=== PATIENT | male | born 1990 | race African-American/Black ===

== ENCOUNTER → 2018-02-14 14:26 | Outpatient (CLI) | payer OTHER ==
[~2018-02-14 14:26] MED LIST: MAXITROL EYE O3.5 GM OP; OMEPRAZOLE20 M1; OMEPRAZOLE20 M1 PO; ZYRTEC10 MG PO
== END | disposition home or self-care (01) ==
LOC: LAB 14:26
DX: K76.89 Other specified diseases of liver (principal); D64.89 Other specified anemias; E07.89 Other specified disorders of thyroid

== ENCOUNTER 2019-01-29 14:11 | Outpatient (CLI) | payer OTHER | END 2019-01-29 14:13 | disposition home or self-care (01) | LOC: RAD 14:11 | DX: M54.5 Low back pain (principal) ==

== ENCOUNTER 2021-01-28 11:13 | Emergency (ER) | payer OTHER ==
[~2021-01-28] VITALS: Ht 172.7 cm; Wt 70.8 kg
== END 2021-01-28 14:56 | disposition home or self-care (01) ==
LOC: ER 11:13
DX: B34.9 Viral infection, unspecified (principal); J11.1 Influenza due to unidentified influenza virus with other respiratory manifestations; Z03.818 Encounter for observation for suspected exposure to other biological agents ruled out

== ENCOUNTER → 2024-05-18 | Emergency (ER) | payer OTHER ==
[~2024-05-18] VITALS: Ht 172.7 cm; Wt 79.8 kg
== END | disposition home or self-care (01) ==
LOC: ER 09:16
DX: M25.572 Pain in left ankle and joints of left foot (principal); M25.571 Pain in right ankle and joints of right foot; E11.9 Type 2 diabetes mellitus without complications; Z88.6 Allergy status to analgesic agent